=== PATIENT | female | born 1995 | race Caucasian/White ===

== ENCOUNTER → 2018-11-18 | Outpatient (CLI) | payer BC ==
[~2018-11-18] MED LIST: CODACE30 PO; IBUP600 PO; PROM25 PO
== END | disposition home or self-care (01) ==
LOC: LAB SHORT 13:12 → LAB 13:12
PROVIDERS: Nurse Practitioner
DX: Z01.419 Encounter for gynecological examination (general) (routine) without abnormal findings (principal)
CPT/HCPCS: 87086; G0145

== ENCOUNTER → 2021-10-15 | Outpatient (CLI) | payer BC | END | disposition home or self-care (01) | LOC: LAB 10:33 | PROVIDERS: Advanced Practice Midwife | DX: Z01.419 Encounter for gynecological examination (general) (routine) without abnormal findings (principal) | CPT/HCPCS: G0123 ==

== ENCOUNTER → 2024-04-23 | Outpatient (CLI) | payer BC | LOC: LAB 15:34 → LAB SHORT 15:34 | DX: O09.90 Supervision of high risk pregnancy, unspecified, unspecified trimester (principal) | CPT/HCPCS: 87081; 87150 ==

== ENCOUNTER 2024-05-10 19:07 | Inpatient (IN) | payer BC ==
[~2024-05-10] VITALS: Ht 165.1 cm; Wt 139.1 kg
[2024-05-10] MEDS ORDERED: FentaNYL 2mcg/ml-Bup 0.1% Epd 250 ML EPI PRN (19:20)
[2024-05-10] MEDS ORDERED: Carboprost Tromethamine 250 MCG/ML 1ML Amp IM PRN (19:20)
[2024-05-10] MEDS ORDERED: Oxytocin 10 Unit / ML Vial IM PRN (19:20)
[2024-05-10] MEDS ORDERED: Methylergonovine Maleate 0.2MG / ML 1ML Amp IM PRN (19:20)
[2024-05-10] MEDS ORDERED: OXYTOCIN/RINGER'S LACTATE 500 ML IV PRN (19:20)
[2024-05-10] MEDS ORDERED: Misoprostol 200 MCG Tab BC PRN (19:20)
[2024-05-10] MEDS ORDERED: OXYTOCIN/RINGER'S LACTATE 500 ML IV SCH (19:20)
[2024-05-10] MEDS ORDERED: Lactated Ringer's 1,000 ML IV PRN ×4 (19:20)
[2024-05-10] MEDS ORDERED: Tranexamic Acid 100 ML IV SCH (19:20)
[2024-05-10] MEDS ORDERED: ePHEDrine Sulfate 50 MG/ML 1ML Injection XX PRN (19:20)
[2024-05-10] MEDS ORDERED: Misoprostol 200 MCG Tab PR PRN (19:20)
[2024-05-10] MEDS ORDERED: Calcium Carbonate 500 MG Tab Chew PO PRN ×2 (19:25→20:10)
[2024-05-10] MEDS ORDERED: Ondansetron HCl 2 MG / ML 2ML Vial IV PRN ×2 (19:25→20:10)
[2024-05-10] MEDS ORDERED: Acetaminophen 500 MG Tab PO PRN (19:25)
[2024-05-10] MEDS ORDERED: FentaNYL Citrate 50 MCG/ML 2 ML Injection IV PRN (19:35)
[2024-05-10 19:43] VITALS: BP 150/76
[2024-05-10 20:01] LABS: BASOPHILS ABSOLUTE AUTO 0.03 K/mm3 (0.00-0.23); BASOPHILS PERCENT AUTO 0 % (0-2); EOSINOPHILS ABSOLUTE AUTO 0.17 K/mm3 (0.00-0.68); EOSINOPHILS PERCENT AUTO 2 % (0-6); Hematocrit 35.2 % (33.0-51.0); Hemoglobin 11.8 g/dL (11.5-16.0); IMMATURE GRAN ABSOLUTE AUTO 0.08 K/mm3 (0.00-0.10); IMMATURE GRAN PERCENT AUTO 1 % (0-1); LYMPHOCYTES PERCENT AUTO 21 % (21-46); MONOCYTES ABSOLUTE AUTO 0.78 K/mm3 (0.16-1.47); MONOCYTES PERCENT AUTO 8 % (4-13); Mean Corpuscular HGB 26.7 pg (26.0-34.0); Mean Corpuscular HGB Conc 33.5 g/dL (31.5-36.5); Mean Corpuscular Volume 80 fL (80-100); Mean Platelet Volume 10.3 fL (9.1-12.4); NEUTROPHILS ABSOLUTE AUTO 6.86 K/mm3 (1.96-9.15); NEUTROPHILS PERCENT AUTO 68 % (41-73); Platelet Count 314 K/mm3 (150-400); RDW Coefficient Variation 13.8 % (11.7-14.2); Red Blood Cell Count 4.42 M/mm3 (3.80-5.20); White Blood Cell Count 10.02 K/mm3 (4.00-11.30)
[2024-05-10] MEDS ORDERED: Acetaminophen 325 MG TABLET PO PRN (20:10)
[2024-05-10] MEDS ORDERED: Zolpidem Tartrate 10 MG Tab PO PRN (20:10)
[2024-05-10] MEDS ORDERED: LEVOTHYROXINE50 MC9 PO (20:27)
[2024-05-10] MEDS ORDERED: ALBU2.5V5 INH (20:27)
[2024-05-10 20:33] VITALS: BP 159/98
[2024-05-10 20:51] VITALS: BP 141/82
[2024-05-10] MEDS ORDERED: NOVOLIN N100 UNIT/2 (20:53)
[2024-05-10 21:23] VITALS: BP 125/76
[2024-05-10 21:39] VITALS: BP 129/73
[2024-05-10 21:53] VITALS: BP 127/72
[2024-05-11] VITALS (28 sets, daily range): BP systolic 103–170; BP diastolic 55–93
[2024-05-12] VITALS (31 sets, daily range): BP systolic 107–143; BP diastolic 55–103
[2024-05-12] MEDS ORDERED: CeFAZolin Sodium 3,000 MG in NS 100 ML IV SCH (08:50)
[2024-05-12] MEDS ORDERED: Citric Acid/Sodium Citrate 30 ML BTL PO ONE (08:50)
[2024-05-12] MEDS ORDERED: Metoclopramide HCl 5MG / ML 2ML Vial IV ONE (08:50)
[2024-05-12] MEDS ORDERED: Azithromycin 500 MG in NS 250 ML IV SCH (08:50)
[2024-05-12] MEDS ORDERED: Morphine Sulfate/PF 1 MG/ML 10MLVIAL ONE (08:54)
[2024-05-12] MEDS ORDERED: Phenylephrine HCl 100 MCG/ML-NS 10MLSYR (1MG/10ML) ONE (09:25)
[2024-05-12] MEDS ORDERED: Oxytocin 10 Unit / ML Vial ONE (09:25)
[2024-05-12] MEDS ORDERED: Methylergonovine Maleate 0.2MG / ML 1ML Amp ONE (09:34)
--- NOTE | 2024-05-12 09:51 | NUR ---
05/12/[address] REDOSED EPIDURAL FOR SECTION AND PREOP ANTIBIOTICS GIVEN BY HIM AT 0915 & 919. VIABLE FEMALE BORN AT 09 WITH APGARS 9/9. WEIGHT 8-10 ([id number]) SEE L&D SUMMARY. CORD BLOOD GIVEN TO MAREN MICHAUD AND DR BEJARANO DECLINES CORD GASES. DR CROWE GAVE METHERGINE 0.2 IM IN LEFT THIGH (SEE ANESTHESIA RECORD).
[2024-05-12] MEDS ORDERED: Lanolin Cream TOP PRN (10:15)
[2024-05-12] MEDS ORDERED: OxyCODONE HCL 5 MG TAB PO PRN ×3 (10:15→14:20)
[2024-05-12] MEDS ORDERED: Ondansetron HCl 2 MG / ML 2ML Vial IV PRN (10:15)
[2024-05-12] MEDS ORDERED: OXYTOCIN/RINGER'S LACTATE 500 ML IV SCH (10:15)
[2024-05-12] MEDS ORDERED: DiphenhydrAMINE HCL 25 MG Cap PO PRN (10:20)
[2024-05-12] MEDS ORDERED: Acetaminophen 500 MG Tab PO PRN (10:20)
[2024-05-12] MEDS ORDERED: Misoprostol 200 MCG Tab PR PRN (10:20)
[2024-05-12] MEDS ORDERED: Methylergonovine Maleate 0.2MG / ML 1ML Amp IM PRN (10:20)
[2024-05-12] MEDS ORDERED: Metoclopramide HCl 10 MG Tab PO PRN (10:20)
[2024-05-12] MEDS ORDERED: Simethicone 80 MG Chew PO PRN (10:20)
[2024-05-12] MEDS ORDERED: Magnesium Hydroxide Conc 10 ML UDC PO PRN (10:25)
--- NOTE | 2024-05-12 10:49 | NUR ---
PACU UNABLE TO PRINT OFF RHYTHM STRIP BUT NORMAL SINUS RHYTHM. NO COMPLAINTS AND DENIES PAIN. LOCHIA REMAINS SCANT.
[2024-05-12] MEDS ORDERED: Ketorolac Tromethamine 30mg Vial IV SCH (11:00)
--- NOTE | 2024-05-12 15:28 | NUR ---
"Spiritual Care | visit At the request of the Pt. this canteen manager visited. [place] and dad are at bedside. Facilitated an update of the babies delivery. Listen with excitement to the families excitmeent for the first baby for parents and grandparents. Pastoral care is given. Pt. displays evidence of great davey and expectation. Prayed a blessing over the child. Both parents verbalized gratitude for the spiritual care visit."
[2024-05-12] MEDS ORDERED: Ibuprofen 400 MG Tab PO SCH (16:00)
[2024-05-12] MEDS ORDERED: Docusate Sodium 100 MG Cap PO SCH (21:00)
[2024-05-13 04:05] VITALS: BP 123/69
[2024-05-13 06:17] LABS: BASOPHILS ABSOLUTE AUTO 0.03 K/mm3 (0.00-0.23); BASOPHILS PERCENT AUTO 0 % (0-2); EOSINOPHILS ABSOLUTE AUTO 0.17 K/mm3 (0.00-0.68); EOSINOPHILS PERCENT AUTO 1 % (0-6); Hematocrit 30.2 % (33.0-51.0); Hemoglobin 10.3 g/dL (11.5-16.0); IMMATURE GRAN ABSOLUTE AUTO 0.07 K/mm3 (0.00-0.10); IMMATURE GRAN PERCENT AUTO 1 % (0-1); LYMPHOCYTES ABSOLUTE AUTO 1.78 K/mm3 (0.84-5.20); LYMPHOCYTES PERCENT AUTO 15 % (21-46); MONOCYTES ABSOLUTE AUTO 1.04 K/mm3 (0.16-1.47); MONOCYTES PERCENT AUTO 9 % (4-13); Mean Corpuscular HGB 27.2 pg (26.0-34.0); Mean Corpuscular HGB Conc 34.1 g/dL (31.5-36.5); Mean Corpuscular Volume 80 fL (80-100); Mean Platelet Volume 10.2 fL (9.1-12.4); NEUTROPHILS ABSOLUTE AUTO 8.86 K/mm3 (1.96-9.15); NEUTROPHILS PERCENT AUTO 74 % (41-73); Platelet Count 254 K/mm3 (150-400); RDW Coefficient Variation 14.3 % (11.7-14.2); RDW Standard Deviation 41.2 fL (35.1-46.3); Red Blood Cell Count 3.78 M/mm3 (3.80-5.20); White Blood Cell Count 11.95 K/mm3 (4.00-11.30)
[2024-05-13 07:34] VITALS: BP 133/75
[2024-05-13] MEDS ORDERED: Prenatal Vit/FE Fumarate/FA 1 Tab PO SCH (09:00)
[2024-05-13 11:44] VITALS: BP 151/79
[2024-05-13 16:32] VITALS: BP 131/83
[2024-05-13 20:29] VITALS: BP 137/83
[2024-05-13 22:56] VITALS: BP 133/71
[2024-05-14 03:12] VITALS: BP 142/85
[2024-05-14 07:39] VITALS: BP 130/71
== END 2024-05-14 11:10 | disposition home or self-care (01) | DRG 788 ==
LOC: OBS 19:07 → BC 19:10 → OBS 19:23 → BC 19:57
PROVIDERS: Obstetrics & Gynecology; ADMIT Advanced Practice Midwife
PROC: 10D00Z1 Extraction of Products of Conception, Low, Open Approach (ICD-10-PCS; principal; 2024-05-12 09:00)
DX: O24.424 Gestational diabetes mellitus in childbirth, insulin controlled (principal); Z3A.39 39 weeks gestation of pregnancy; Z79.4 Long term (current) use of insulin; O99.52 Diseases of the respiratory system complicating childbirth; O99.214 Obesity complicating childbirth; O99.284 Endocrine, nutritional and metabolic diseases complicating childbirth; J45.909 Unspecified asthma, uncomplicated; E06.3 Autoimmune thyroiditis; E66.9 Obesity, unspecified; Z79.890 Hormone replacement therapy; Z79.899 Other long term (current) drug therapy; E03.9 Hypothyroidism, unspecified
CPT/HCPCS: 36415; 51702; 59200; 82947; 84443; 85025; 86850; 86900; 86901; 86923; A9270; J1885; J2210; J2274; J2371; J2590; J2765; J7120